=== PATIENT | male | born 1945 | race Caucasian/White ===

== ENCOUNTER → 2021-06-04 | Outpatient (CLI) | payer MEDICARE, OTHER ==
[~2021-06-04] MED LIST: CARBIDOPA-LEVO1 EAC1 PO; CARVEDILOL3.125 MG PO; CELEXA 20MG TAB20 MG PO; CLINDAMYCIN HC300 MG PO; ENULOSE10 GM/15 M PO; FAMOTIDINE40 MG PO; FINASTERIDE5 MG PO; FLOMAX 0.4 MG0.4 MG PO; GLUCOPHAGE 500500 MG PO; HYDROCODON-ACE1 EAC4 PO; LANOXIN125 MCG PO; LASIX20 MG PO; LEVOFLOXACIN500 MG PO; MYRBETRIQ25 MG PO; OXYBUTYNIN CHLOR5 MG PO; OZEMPIC 2MG/1.5ML SQ; PLAVIX 75 MG TA75 MG PO; POTASSIUM CHLO20 ME1 PO; RAMIPRIL2.5 MG PO; RISPERDAL3 MG PO; ST. JOSEPH ASPI81 M1 PO; SYNTHROID50 MCG PO; TEMAZEPAM15 MG PO; VISTARIL 25 MG25 MG PO; VOLTREN XR 100100 MG PO; ZESTRIL5 MG PO; ZETIA10 MG PO
[2021-06-04 13:03] LABS: HEMOGLOBIN 11.6 gm/dl (14.0-17.5); RED BLOOD COUNT 3.63 M/UL (4.20-5.50); WHITE BLOOD COUNT 9.2 K/UL (4.5-11.0)
[2021-06-04 13:24] LABS: BUN/CREATININE RATIO 15 (0-10)
== END ==
LOC: ECHO 11:39
PROVIDERS: Internal Medicine Cardiovascular Disease
DX: Z45.02 Encounter for adjustment and management of automatic implantable cardiac defibrillator (principal); I47.2 Ventricular tachycardia; I25.5 Ischemic cardiomyopathy; I25.10 Atherosclerotic heart disease of native coronary artery without angina pectoris; I50.22 Chronic systolic (congestive) heart failure; Z20.822 Contact with and (suspected) exposure to COVID-19
CPT/HCPCS: ECHO; 36415; 71046; 80048; 85025; 93306; U0003

== ENCOUNTER → 2021-06-08 | Outpatient (CLI) | payer MEDICARE, OTHER | LOC: CATH 07:14 | DX: Z45.02 Encounter for adjustment and management of automatic implantable cardiac defibrillator (principal); I25.5 Ischemic cardiomyopathy; I11.0 Hypertensive heart disease with heart failure; I50.22 Chronic systolic (congestive) heart failure; I44.7 Left bundle-branch block, unspecified; I47.2 Ventricular tachycardia; I25.10 Atherosclerotic heart disease of native coronary artery without angina pectoris; I65.23 Occlusion and stenosis of bilateral carotid arteries; E11.9 Type 2 diabetes mellitus without complications; E78.5 Hyperlipidemia, unspecified; I25.2 Old myocardial infarction; Z79.82 Long term (current) use of aspirin; Z79.84 Long term (current) use of oral hypoglycemic drugs; Z79.899 Other long term (current) drug therapy; Z95.1 Presence of aortocoronary bypass graft; Z86.79 Personal history of other diseases of the circulatory system; Z98.890 Other specified postprocedural states; Z87.891 Personal history of nicotine dependence | CPT/HCPCS: 82962; 99152; 99153; C1882; J1200; J2250; J3010; J3370; J7040; J7050 ==